=== PATIENT | male | born 1935 | race Caucasian/White ===

== ENCOUNTER 2023-07-25 16:24 | Emergency (ER) | payer OTHER, SELFPAY ==
[2023-07-25] VITALS (36 sets, daily range): BP systolic 50–98; BP diastolic 30–53
[2023-07-25 16:33] LABS: Glucose - Point of Care 372 mg/dl (70-99)
--- NOTE | 2023-07-25 16:40 | ED.GENMED ---
History of Present Illness
General
Chief Complaint: CODE-TRAUMA
Time Seen by Provider: 07/25/23 16:32
Travel History
Have you had any contact with someone who has COVID-19?: Unable to Answer
Do you have any symptoms of coronavirus? Fever > 100 degrees, chills, cough, shortness of breath, sore throat, loss of taste or smell, muscle aches, or headache?: Unable to Answer
History of Present Illness
History of Present Illness:
HPI: About 3:45 PM, EMS was dispatched for a 'fall'. Reportedly the patient was walking up the steps and reached the landing and then family heard him fall and he was speaking at the time so there was no definite loss of consciousness. Of note,
the had called other families before calling EMS. Upon EMS initial evaluation, the patient was able to speak but seems somewhat confused. Initial plan was to go to [facility] however the patient lost pulses at around 4 PM. He was given
epinephrine x 1. He arrived here at about 4:25 PM. He was intubated immediately upon arrival. EMS says that he has a history of diabetes and he has a colostomy bag.
EXAM:
GENERAL: The patient is critically ill and is unresponsive
CERVICAL SPINE: No definite step-off
HEENT: Moist oral mucosa, absent corneals, pupils are nonreactive
CARDIOVASCULAR: Pulseless upon initial evaluation, CHELSEA was present
PULMONARY: Breath sounds are fairly clear while bagged
ABDOMEN: Soft with no peritoneal signs, colostomy bag noted
NEUROLOGIC: The patient is unresponsive to any painful stimuli, he follows no commands
PSYCHIATRIC: Untestable
EXTREMITIES: No obvious deformity
SKIN: Appears pale with poor perfusion
ED COURSE:
4:25 PM: I initially evaluated patient
NUMBER AND COMPLEXITY OF PROBLEMS ADDRESSED AT THE ENCOUNTER
� Chronic conditions affecting care: Colon cancer with colostomy bag, diabetes
� Acute Exacerbation and/or Progression of Chronic Illness: This is an acute problem
� Differential Diagnosis includes: Intracranial hemorrhage, cervical spine fracture, hypoglycemia, dysrhythmia
AMOUNT AND/OR COMPLEXITY OF DATA TO BE REVIEWED AND ANALYZED
� I performed an independent evaluation of and my interpretation is:
EKG: Severe artifact noted, cardiac rhythm
CT: I personally viewed CT imaging and agree with radiologist interpretation
X-rays:
Laboratory Studies: White count 12.2, hemoglobin 10.6, platelets 146, chemistries show bicarb of 17, glucose of 326 AST 84, ALT 79, glucose 372
Other: ABG shows a pH of 7.18
� Review of other/old records: The patient had a colonoscopy in 2013
� Clinical information was obtained by an independent historian: I spoke to EMS extensively upon arrival; I spoke to family at about 5 PM
� Prescriptions/Medications Considered but not given:
� Further testing considered but not performed:
RISK OF COMPLICATIONS AND/OR MORBIDITY OR MORTALITY OF PATIENT MANAGEMENT
� Social determinants of health affecting care: Lives at home
� Discussion with other providers: I spoke to radiologist regarding the cervical spine imaging; I also spoke to Dr. Damian at [facility] who accepts in trauma transfer at approximately 6:15 PM
� Escalation of care including admission/observation vs risk of discharge considered: Fall before 3:45 PM, altered mental status but talking at around just before 4 PM then became pulseless around 4 PM, EMS gave 1 round of epi,
will give another round of epi around 4:25 PM, I intubated him upon arrival and he went for CT. He became pulseless again around 4:45 PM and was coded for about 3 minutes. He again was given epinephrine. Blood pressure at 5:10 PM was down to
about 50 systolic. He had alreadynearly 2 L of fluid, will add Levophed. I performed a femoral artery stick for ABG. After the initial rounds of codes, the patient has remained in a sinus rhythm on 2 pressors. There was a delay with getting him
over to [facility] as ground transportation felt that he was more appropriate to go by air and the ultimately left by air.
Past History
Past History
ED Past Medical History: Cancer (Colon cancer status post resection), NIDDM and Hypothyroidism
Social History
Tobacco: Non-smoker
Alcohol: None
Drug: None
Phy Exam
Physical Exam
Physical Exam:
See HPI
Course
Orders/Labs/Results
Orders:
Orders
07/25/23 16:32
CT Cervical Spine W/o Iv Contr Urgent
Comment:
Reason For Exam: trauma arrest
CT Chest/abd/pel Wo Iv Cont Urgent
Reason For Exam: trauma arrest
CT Head W/o Iv Contrast Urgent
Comment:
Reason For Exam: trauma arrest
0.9% Sodium Chloride 1000 ml [Nss] 1,000 ml IV BOLUS
07/25/23 16:33
Electrocardiogram (*1) Urgent
Reason for Study: Chest Pain
EKG- Treatment ONCE
07/25/23 16:38
Complete Blood Count/With Diff Urgent
Comprehensive Metabolic Panel Urgent
NT-proBNP Urgent
Troponin I Urgent
07/25/23 17:11
NORepinephrine 4 MG/250 ML [Levophed] 4 mg in 250 ml .ROUTE .STK-MED
07/25/23 17:35
0.9% Sodium Chloride 1000 ml [Nss] 1,000 ml IV BOLUS
07/25/23 17:45
DOPamine 400 MG/D5W 250 ML [DOPamine 400 MG] 400 mg in 250 ml IV PER PROTOCOL
Initial dose in mcg/kg/min, then titrate:: 10
Titrate to keep:: MAP > 65 mmHg
Titrate by mcg/kg/min:: 1-2 mcg/kg/min
Frequency of titrations (minutes):: 15
Maximum dose in ICU in mcg/kg/min:: 20
Maximum dose in IMU in mcg/kg/min:: 10
Begin to taper infusion when:: Remained at goal for 4hrs
Taper by mcg/kg/min:: 1-2 mcg/kg/min
Frequency of taper (minutes) if patient maintains goal:: 30
Taper to off?: Yes
If infusion off & no longer maintaining goal:: Contact Provider
07/25/23 17:53
Chest X-ray Portable [CR Chest Portable - 1 View] Urgent
Comment:
Reason For Exam: nasogastric tube confirmation
Reason Study Needs to be Portable: Unable to Transport
07/25/23 18:00
NORepinephrine 4 MG/250 ML [Levophed] 4 mg in 250 ml IV PER PROTOCOL
Initial dose in mcg/min, then titrate:: 10
Titrate to keep:: MAP > 65 mmHg
Titrate by mcg/min:: 1-2 mcg/min
Frequency of titrations (minutes):: 5
Maximum dose in ICU in mcg/min:: 30
Maximum dose in IMU in mcg/min:: 8
Maximum dose in IVU in mcg/min:: 4
Begin to taper infusion when:: Remained at goal for 4hrs
Taper by mcg/min:: 1-2 mcg/min
Frequency of taper (minutes) if patient maintains goal:: 30
Taper to off?: Yes
If infusion off & no longer maintaining goal:: Contact Provider
07/25/23 18:13
Ventilator Initial Settings [RESP] Stat
Tidal Volume: 450
Rate: 14
FIO2: 100
PEEP: 5
07/25/23 18:31
Arterial Blood Gas Stat
%Oxygen/Room Air: 100
Abnormal Lab Results
07/25/23 07/25/23 07/25/23
16:32 16:38 18:31
WBC 12.2 H 10^3/uL
(4.8-10.8)
RBC 3.38 L 10^6/uL
(4.70-6.10)
Hgb 10.6 L g/dL
(13.0-18.0)
Hct 34.1 L %
(39.0-52.0)
MCV 100.9 H fL
(80.0-94.0)
MCH 31.4 H pg
(27.0-31.0)
MCHC 31.1 L g/dL
(33.0-37.0)
Abs Immat Gran (auto) 0.1 H 10^3/uL
(0-0.05)
Absolute Neuts (auto) 8.4 H 10^3/uL
(1.4-6.5)
Absolute Monos (auto) 0.8 H 10^3/uL
(0.1-0.6)
Immature Gran % 1.2 H %
(0-0.5)
pH 7.18 L*
(7.35-7.45)
pCO2 51 H mmHg
(35-48)
pO2 191 H mmHg
(83-108)
HCO3 19.0 L mmol/L
(21-28)
ABG O2 Sat (Measured) 100.0 H %
(94-98)
Chloride 110 H mmol/L
(98-107)
Carbon Dioxide 17 L mmol/L
(22-30)
BUN 25 H mg/dl
(9-20)
Glucose 326 H mg/dl
(70-99)
Calcium 7.9 L mg/dl
(8.4-10.2)
AST 84 H U/L
(17-59)
ALT 79 H U/L
(0-50)
Total Protein 4.9 L g/dl
(6.3-8.2)
Albumin 2.7 L g/dl
(3.5-5.0)
POC Glucose 372 H mg/dl
(70-99)
07/25/23 16:38
07/25/23 16:38
Vital Signs
Initial and Last Documented VS:
Initial Vital Signs
Pulse BP
86 88/47
07/25/23 17:03 07/25/23 17:03
Last Documented Vital Signs
Temp Pulse Resp BP Pulse Ox
34 F L 93 18 86/42 100
07/25/23 19:09 07/25/23 21:45 07/25/23 21:45 07/25/23 21:40 07/25/23 21:25
Procedures
Intubations
Procedure completed by: Me, Dr. Howell
Method of Intubation: glidescope
Tube size (cm): 7.5
Placement confirmed by: auscutation, capnography and direct visualization
Breath sounds after intubation: equal
Intubation complications: no complications
Additional information:
This was a very difficult intubation but I ultimately did see the cords as he was very far anterior
*Critical Care Note
Total Time (30-74mins, 75-104mins- exclusive of procedures): 90 minutes
comment:
The patient had cardiac arrest 2 times in the ED. His vital signs were very closely monitored. I discussed emergently with trauma services at [facility] and prolific discussed with hospitalist here at [facility]. He was given bicarb, epi twice,
was given aggressive IV fluids and was given dopamine then Levophed. Pressures have remained poor. I reassessed his neurologic status several times and he has absent corneals
ED Attending Note
-
Portions of this chart may have been created with voice recognition software.� Occasional wrong word or��sound alike� substitutions may have occurred due to the inherent limitations of voice recognition software.
Discharge Plan
Departure
Patient Disposition: Acute Care Hospital
Date of Disposition: 07/25/23
Time of Disposition: 22:02
Discharge Problem:
Cardiac arrest
Prescriptions:
No Action
metformin 500 mg Tablet
1,500 mg PO DAILY
metformin 500 mg Tablet
1,000 mg PO QPM
simvastatin [Zocor] 10 mg Tablet
10 mg PO DAILY
glipizide 5 mg Tablet Extended Release 24hr
5 mg PO DAILY
levothyroxine [Synthroid] 200 mcg Tablet
200 mcg PO DAILY
amlodipine-benazepril 10-40 mg Capsule
1 cap PO DAILY
Referrals:
Charlotte Arriola MD [Family Provider] -
Hospital Transfer
Other hospital: [facility]
I certify that the patient requires transfer: Yes
Discussed case with accepting physician: Dr. Damian
Reason for transfer: higher level of care
[2023-07-25] MEDS: NSS 1000 IV ×2 (16:46→17:38)
--- NOTE | 2023-07-25 16:46 | PHANOTE ---
Med Rec Note- patient ecw limited late update on 02/10/2023 does have note to stop amlodipine/benazepril and start losartan, no pharmacy data crossed, ecw does show patient on aspirin 81mg daily
[2023-07-25 16:54] LABS: % Basophils 0.2 % (0-2); % Eosinophils 0.8 % (0-6); % Immature Granulocytes 1.2 % (0-0.5); % Lymphocytes 21.9 % (20.5-51.1); % Monocytes 6.7 % (1.7-9.3); % Neutrophils 69.2 % (42.2-75.2); Absolute Eosinophils 0.1 10^3/uL (0-0.7); Absolute Immature Granulocytes 0.1 10^3/uL (0-0.05); Absolute Lymphocytes 2.7 10^3/uL (1.2-3.4); Absolute Monocytes 0.8 10^3/uL (0.1-0.6); Absolute Neutrophils 8.4 10^3/uL (1.4-6.5); Hematocrit 34.1 % (39.0-52.0); Hemoglobin 10.6 g/dL (13.0-18.0); Mean Corp Hgb Conc. 31.1 g/dL (33.0-37.0); Mean Corpuscular Hgb 31.4 pg (27.0-31.0); Mean Corpuscular Volume 100.9 fL (80.0-94.0); Mean Platelet Volume 10.2 fL (7.4-10.4); Nucleated Red Blood Cells % 0.4 % (-); Platelet Count 146 10^3/uL (130-400); Red Blood Cell Count 3.38 10^6/uL (4.70-6.10); Red Cell Dist. Width 12.4 % (11.5-14.5); White Blood Cell Count 12.2 10^3/uL (4.8-10.8)
[2023-07-25] MEDS: DOPamine 400 MG 250 IV (17:37)
[2023-07-25 17:39] LABS: ALT (SGPT) 79 U/L (0-50); AST (SGOT) 84 U/L (17-59); Albumin 2.7 g/dl (3.5-5.0); Alkaline Phosphatase 54 U/L (38-126); Blood Urea Nitrogen 25 mg/dl (9-20); Calcium 7.9 mg/dl (8.4-10.2); Carbon Dioxide 17 mmol/L (22-30); Chloride 110 mmol/L (98-107); Glucose 326 mg/dl (70-99); Potassium 4.2 mmol/L (3.5-5.1); Sodium 141 mmol/L (135-145); Total Bilirubin 0.4 mg/dl (0.2-1.3); Total Protein 4.9 g/dl (6.3-8.2); eGFR > 60.00
[2023-07-25 17:49] LABS: NT-proBNP 104 pg/ml; Troponin I < 0.012 ng/ml
[2023-07-25] MEDS: LEVOPHED 250 IV (18:08)
[2023-07-25 18:37] LABS: B.E. -9.1 mmol/L; PCO2 51 mmHg (35-48); PO2 191 mmHg (83-108)
[2023-07-25 18:41] LABS: pH 7.18 (7.35-7.45)
== END 2023-07-25 22:15 | disposition short-term general hospital (02) ==
LOC: EMR 16:24
PROVIDERS: EMERGENCY PHYSICIAN Emergency Medicine; FAMILY PHYSICIAN Internal Medicine
DX: I46.9 Cardiac arrest, cause unspecified (principal); W10.9XXA Fall (on) (from) unspecified stairs and steps, initial encounter; Y93.01 Activity, walking, marching and hiking; R41.0 Disorientation, unspecified; E11.9 Type 2 diabetes mellitus without complications; E03.9 Hypothyroidism, unspecified; Z46.59 Encounter for fitting and adjustment of other gastrointestinal appliance and device; Z46.82 Encounter for fitting and adjustment of non-vascular catheter; Z93.3 Colostomy status
CPT/HCPCS: 99291; 31500; 70450; 71045; 71250; 72125; 74176; 80053; 82805; 82962; 83880; 84484; 85025; 93005; 94002